=== PATIENT | male | born 1990 | race Caucasian/White ===

== ENCOUNTER 2017-06-10 15:08 | Emergency (ER) | payer BC ==
[~2017-06-10] VITALS: Ht 188 cm; Wt 81.6 kg
[2017-06-10 15:24] VITALS: BP 149/83
--- NOTE | 2017-06-10 15:33 | PHYS DOC ---
Past History Past Medical History: No Pertinent History Additional Past Surgical Histo: facial reconstructive surgery for an oral blowout fracture Smoking: Non-smoker Alcohol Use: None Drug Use: None Adult General Chief Complaint Chief Complaint: SKIN PROBLEM HPI HPI Patient is a pleasant otherwise healthy 26-year-old male who noted on the inside the right ankle a small scab/bruise that is nonpainful that in the last week. It started when he picked at a lesion on the inside of his ankle and now he's got a small 2 cm x 2 cm area of a "" bruise with no fevers, no chills no joint pain no rash no satellite lesions no history of tick in this tick bite or other symptoms. Patient denies any night sweats weight loss fevers chills or recent URI symptoms. Denies any STDs in the past Review of Systems Review of Systems Constitutional: Denies fever or chills [] : Denies dysuria or hematuria [] Musculoskeletal: Denies back pain or joint pain [] Integument: Denies rash or skin lesions his only issue is a small area of "" hematoma to the inside of the ankle on the right[] Neurologic: Denies headache, focal weakness or sensory changes [] All other systems were reviewed and found to be within normal limits, except as documented in this note. Physical Exam Physical Exam Other vital signs recorded on the chart within normal limits Constitutional: Well developed, well nourished, no acute distress, non-toxic appearance. [] Skin: Warm, dry, she has a 2 x 2 centimeter area of hematoma/contusion and bruise on the inside of his right ankle it is not tender to palpation it is blanchable there are no satellite lesions no petechiae and no purpura no evidence of bullae. There is no joint soreness or issue with range of motion he can ambulate without issue Extremities: No tenderness, no cyanosis, no clubbing, ROM intact, no edema. [] Neurologic: Alert and oriented X 3, normal motor function, normal sensory function, no focal deficits noted. [] EKG EKG [] Radiology/Procedures Radiology/Procedures [] Course & Med Decision Making Course & Med Decision Making Pertinent Labs and Imaging studies reviewed. (See chart for details) []She presents with what I believe to be a small hematoma in the subcutaneous tissues. It looks like he may been associated with a small injury superior to the lesion itself. It is not warm is not tender to palpation is not spreading with no satellite lesions. rash medical decision making reevaluation: The patient is now resting comfortably and feels better, is alert, is nontoxic, and is in no acute distress. The patient has a normal mental status and is neurologically intact. The rash presenting today as part of patient despite does not have any petechiae purpura, there is no palm or sole involvement, there is no joint pain or swelling, there are no mucous membrane lesions, no signs of abscess, and no bullae. The patient appears well, has no fever, no altered mental status, or signs of systemic toxicity. The history, exam, and diagnostic testing (if any) and current condition did not demonstrate signs of sepsis, Mckee spotted fever, meningitis, meningococcemia, Lyme disease, toxic shock syndrome, disseminated gonorrhea, endocarditis, measles, mumps, rubella, necrotizing fasciitis, TEN, Raad Brad syndrome, pemphigus vulgaris, dress syndrome, staphylococcal scalded skin syndrome or other systemic illness or cardiac further treatment, testing or consultation in the emergency department. The patient's vital signs have been stable, the patient condition is stable and appropriate for discharge. The patient will pursue further outpatient evaluation and primary care management as indicated in the discharge instructions. Dragon Disclaimer Dragon Disclaimer This electronic medical record was generated, in whole or in part, using a voice recognition dictation system. Departure Departure: Impression: Primary Impression: Hematoma Disposition: 01 HOME, SELF-CARE Condition: STABLE Referrals: PCP,NO (PCP) Patient Instructions: Hematoma Additional Instructions: discharge: I've spoken with the patient and/or caregivers. I've explained the patient's condition, diagnosis and treatment plan based on information available to me at this time. I've answered the patient's and/or caregivers questions and addressed any concerns. The patient and/or caregivers have a good understanding the patient's diagnosis, condition and treatment plan as can be expected at this point. Vital signs have been stabilized. The patient's condition is stable for discharge from the emergency department. The patient will pursue further outpatient evaluation with her primary care provider or other designated consulting physician as outlined in the discharge instructions. Patient and/or caregivers are agreeable to this plan of care and follow-up instructions have been explained in detail. The patient and/or caregivers have received these instructions in written format and expressed understanding of these discharge instructions. The patient and her caregivers are aware that if any significant change in condition or worsening of symptoms should prompt him to immediately return to this of the closest emergency department. If an emergent department is not readily available I would encourage him to call 911. TERRI KAUFFMAN MD Jun 10, 2017 15:33
== END 2017-06-10 15:40 | disposition home or self-care (01) ==
LOC: ER 15:08
DX: S90.01XA Contusion of right ankle, initial encounter (principal); X58.XXXA Exposure to other specified factors, initial encounter; Y93.89 Activity, other specified; Y99.8 Other external cause status; Y92.89 Other specified places as the place of occurrence of the external cause
CPT/HCPCS: 99281